=== PATIENT | female | born 1990 | race Caucasian/White ===

== ENCOUNTER 2025-01-04 17:24 | Outpatient (CLI) | payer OTHER, SELFPAY | END 2025-01-04 17:25 | disposition home or self-care (01) | PROVIDERS: PCP Nurse Practitioner Family; Visit Provider Nurse Practitioner Family | DX: E55.9 Vitamin D deficiency, unspecified (principal); M25.50 Pain in unspecified joint; R53.83 Other fatigue; D50.9 Iron deficiency anemia, unspecified; R20.2 Paresthesia of skin; R21 Rash and other nonspecific skin eruption | CPT/HCPCS: 80053; 82607; 82728; 82784; 83540; 83550; 84207; 84443; 85025; 85045; 85651; 86038; 86140; 86200; 86231; 86258; 86364; 86431 ==